=== PATIENT | male | born 1980 | race Caucasian/White ===

== ENCOUNTER 2025-01-10 13:55 | Emergency (ER) | payer OTHER ==
[2025-01-10] MEDS ORDERED: BACITRACIN ZINC 15 GM TUBE TOPICAL OINTMENT TP ONE (14:04)
[2025-01-10 14:24] VITALS: BP 122/74; PULSE 62; RESP 15; TEMP 97.7; BMI 28.8
[2025-01-10] MEDS ORDERED: DIPHTH,PERTUSS(ACELL),TET 0.5 ML DISP.SYRIN IM ONE (14:27)
[2025-01-10] MEDS ORDERED: IBUPROFEN 400 MG TABLET (FP) PO ONE (14:27)
[2025-01-10] MEDS: DIPHTH,PERTUSS(ACELL),TET 0.5 ML DISP.SYRIN IM ONE (14:29)
[2025-01-10] MEDS: IBUPROFEN 400 MG TABLET (FP) PO ONE (14:30)
== END 2025-01-10 17:45 | disposition home or self-care (01) ==
LOC: FER 13:55
PROC: 3E0234Z Introduction of Serum, Toxoid and Vaccine into Muscle, Percutaneous Approach (ICD-10-PCS; principal; 2025-01-10)
DX: S00.33XA Contusion of nose, initial encounter (principal); Z23 Encounter for immunization; W18.09XA Striking against other object with subsequent fall, initial encounter
CPT/HCPCS: 70486-TC; 90715; 99285-25